=== PATIENT | female | born 1980 | race Two or more races ===

== ENCOUNTER 2020-10-24 04:26 | Day surgery (SDC) | payer OTHER ==
[2020-10-21 08:57] VITALS: BMI 27.8
[2020-10-24] MEDS ORDERED: ACETAMINOPHEN 325 MG TABLET (FP) PO PRN (09:28)
[2020-10-24] MEDS ORDERED: oxyCODONE HCL 5 MG TABLET PO PRN (09:28)
[2020-10-24] MEDS ORDERED: ONDANSETRON 4 MG/2 ML VIAL IVPUSH PRN (09:28)
[2020-10-24] MEDS ORDERED: LACTATED RINGERS SOLUTION 1,000 ML IV SCH (09:30)
[2020-10-24] MEDS ORDERED: PROPOFOL 20 ML ONE (09:44)
[2020-10-24] MEDS ORDERED: MIDAZOLAM HCL 2 MG/2 ML SINGLE DOSE VIAL ONE (09:44)
[2020-10-24 14:24] VITALS: BP 110/72; PULSE 68; TEMP 97.2
== END 2020-10-24 12:25 | disposition home or self-care (01) ==
LOC: JASU-SURG 04:26
PROVIDERS: ATTEND Urology
PROC: 0TF3XZZ Fragmentation in Right Kidney Pelvis, External Approach (ICD-10-PCS; principal; 2020-10-24 09:47)
DX: N20.0 Calculus of kidney (principal)
CPT/HCPCS: 81025

== ENCOUNTER 2023-04-08 04:16 | Day surgery (SDC) | payer OTHER ==
[2023-04-01 12:38] VITALS: BMI 25.6
[2023-04-08 13:11] VITALS: TEMP 98.2
[2023-04-08] MEDS ORDERED: MIDAZOLAM HCL 2 MG/2 ML SINGLE DOSE VIAL ONE (16:01)
[2023-04-08] MEDS ORDERED: KETOROLAC TROMETHAMINE 30 MG/1 ML VIAL ONE (16:01)
[2023-04-08] MEDS ORDERED: FENTANYL CITRATE/PF 50 MCG/ML VIAL ONE (16:01)
[2023-04-08] MEDS ORDERED: ONDANSETRON 4 MG/2 ML VIAL ONE (16:01)
[2023-04-08] MEDS ORDERED: ACETAMINOPHEN 500 MG TABLET (FP) ONE (16:43)
[2023-04-08] MEDS ORDERED: ACETAMINOPHEN 500 MG TABLET (FP) PO ONE (16:45)
[2023-04-08 17:21] VITALS: BP 106/56; PULSE 79; RESP 16
== END 2023-04-08 17:15 | disposition home or self-care (01) ==
LOC: JASU-SURG 04:16
PROVIDERS: ATTEND Urology
PROC: 0TF4XZZ Fragmentation in Left Kidney Pelvis, External Approach (ICD-10-PCS; principal; 2023-04-08 14:30)
DX: N20.0 Calculus of kidney (principal)